=== PATIENT | male | born 1995 | race Caucasian/White ===

== ENCOUNTER 2022-08-21 06:59 | Emergency (ER) | payer BC, SELFPAY ==
[2022-08-21 07:06] VITALS: BP 124/86; PULSE 68; RESP 16; TEMP 36.8; O2SAT 100; BMI 19.9
--- NOTE | 2022-08-21 07:19 | ED.NAVMDI1 ---
HPI - Nausea/Vomiting/Diarrhea General Chief complaint: Nausea/Vomiting/Diarrhea Stated complaint: vomiting blood Time Seen by Provider: 08/21/22 07:19 Mode of arrival: walk-in History of Present Illness HPI Narrative: She presents to emergency department complaining of nausea and vomiting. He states last night he felt sick to his stomach he vomited and after he vomited really hard noted some bright red blood. There were no clots noted. Denies coffee-ground emesis. He still has nausea he states he has taken Tums because he felt like he was having acid issues which she has inteermittently. He denies any fever, chills, or cough. He denies any chest pain, shortness of breath. He denies any diarrhea or melena, hematochezia. Denies any dizziness, palpitations, lightheadedness. Related Data Previous Rx's Medication Instructions Recorded ondansetron HCl 4 mg tablet 4 mg PO DAILY PRN nausea and 08/21/22 vomiting 4 days #10 tabs pantoprazole 20 mg tablet,delayed 20 mg PO DAILY 4 weeks #28 tabs 08/21/22 release (Protonix) Allergies Allergy/AdvReac Type Severity Reaction Status Date / Time No Known Drug Allergies Allergy Verified 08/21/22 07:06 Review of Systems ROS Status of ROS 10 or more systems reviewed and unremarkable except as noted in history and below Exam Narrative Exam Narrative: Nurses notes and vital signs reviewed and patient is not hypoxic. General: Nontoxic, Well-appearing and in no apparent distress. Skin: Warm, dry, no pallor noted. No Rash Head: Normocephalic, atraumatic. Neck: Supple, non-tender. Eye: Pupils are equal, round and EOMI. No scleral icterus. Ears, Nose, Mouth, and Throat: TM clear, no posterior oropharynx erythema or nasal mucosal hypertrophy, uvula is mid-line Oral mucosa is moist Cardiovascular: Regular Rate and Rhythm without murmur, gallop or rub. Respiratory: No accessory muscle use or respiratory distress. Lungs are clear to auscultation, no wheezing, rales or rhonchi Chest Wall: no tenderness Back: No midline thoracic or lumbar vertebral tenderness. No CVA tenderness Musculoskeletal: normal ROM, no calf or popliteal tenderness, no lower extremity edema/swelling GI: Abdomen is soft, non-distended. Normal bowel sounds. No masses appreciated. No tenderness to palpation. No rebound, guarding, or rigidity noted. Neurological: A&O x4. No cranial nerve dysfunction observed. No truncal ataxia. Moves all extremities. Sensation intact. Psychiatric: Cooperative and interactive. Normal mood and affect. Constitutional Vital Signs - 24 hr 08/21/22 07:06 Temperature 98.2 F Pulse Rate [Monitor] 68 Respiratory Rate 16 Blood Pressure [Left Arm] 124/86 H Pulse Oximetry 100 Oxygen Delivery Method Room Air Course Vital Signs Vital signs: Vital Signs Temperature 98.2 F 08/21/22 07:06 Pulse Rate 68 08/21/22 07:06 Respiratory Rate 16 08/21/22 07:06 Blood Pressure 124/86 H 08/21/22 07:06 Pulse Oximetry 100 08/21/22 07:06 Oxygen Delivery Method Room Air 08/21/22 07:06 Temperature 98.2 F 08/21/22 07:06 Pulse Rate 68 08/21/22 07:06 Respiratory Rate 16 08/21/22 07:06 Blood Pressure 124/86 H 08/21/22 07:06 Pulse Oximetry 100 08/21/22 07:06 Oxygen Delivery Method Room Air 08/21/22 07:06 MDM - Nausea/Vomiting/Diarrhea MDM Narrative Medical decision making narrative: Patient had an IV established and given Zofran, IV fluids, Protonix, and a gastrointestinal cocktail. Symptoms improved. Patient and mother were advised the patient will need to follow-up with a weather stripper. Results discussed with patient and mother. Patient will be given a prescription for Zofran, and antacid medication.Last time the patient vomited and had the episode of hematemesis was at 9 PM last night 12 hours prior to blood work. At this time the patient is without objective evidence of an acute process requiring hospitalization or inpatient management. The patient has remained hemodynamically stable. No additional indication for emergent studies at this time. I answered all questions. Discussed discharge instructions including standard anticipatory guidance and what should prompt a return to the emergency department, including if they get worse are not getting better or develops any new or concerning symptoms. I've given them specific time frame in which to follow-up, and who to follow-up with. The patient demonstrates understanding. Patient is nontoxic and stable for discharge with outpatient follow-up. This note was created with the assistance of a speech recognition program. Although the intention is to generate documents that actually reflects the content of the visit, no guarantees can be provided that every mistake has been identified and corrected by editing. Differential Diagnosis Differential diagnosis: Likely food poisoning, gastroenteritis, dehydration and other (gi bleed) Lab Data Attestation: I reviewed the patient's lab results. Labs: Lab Results 08/21/22 Range/Units 07:45 WBC 9.7 (4.0-11.0) 10^3/uL RBC 5.29 (4.70-6.10) 10^6/uL Hgb 16.3 (14.0-18.0) g/dL Hct 46.5 (42.0-54.0) % MCV 87.9 (80.0-94.0) fL MCH 30.8 (25.9-34.0) pg MCHC 35.1 (29.9-35.2) g/dL RDW 11.9 (11.0-15.0) % Plt Count 215 (150-450) 10^3/uL MPV 10.2 (9.5-13.5) fL Neut % (Auto) 57.5 (43.0-75.0) % Lymph % (Auto) 25.5 (20.5-60.0) % Childress % (Auto) 11.6 (1.7-12.0) % Eos % (Auto) 4.4 (0.9-7.0) % Baso % (Auto) 0.8 (0.2-2.0) % Neut # (Auto) 5.6 (1.4-6.5) 10^3/uL Lymph # (Auto) 2.5 (1.2-3.8) 10^3/uL Childress # (Auto) 1.1 H (0.3-0.8) 10^3/uL Eos # (Auto) 0.4 (0.0-0.7) 10^3/uL Baso # (Auto) 0.1 (0.0-0.1) 10^3/uL Abs Immat Gran (auto) 0.02 (0.00-0.03) 10^3/uL Imm/Tot Granulo (auto) 0.2 (0.0-0.5) % Sodium 140 (136-145) mmol/L Potassium 3.9 (3.5-5.1) mmol/L Chloride 102 (98-107) mmol/L Carbon Dioxide 29.0 (21.0-32.0) mmol/L Anion Gap 12.9 BUN 11.0 (7.0-18.0) mg/dL Creatinine 0.85 (0.70-1.30) mg/dL Est GFR ( Amer) >60 (>=60) Est GFR (Non-Af Amer) >60 (>=60) BUN/Creatinine Ratio 12.9 Glucose 100 (74-106) mg/dL Lactate 1.0 (0.4-2.0) mmol/L Calcium 9.3 (8.5-10.1) mg/dL Total Bilirubin 1.0 (0.2-1.0) mg/dL AST 17 (15-37) U/L ALT 19 (16-63) U/L Alkaline Phosphatase 101 (46-116) U/L Total Protein 7.4 (6.4-8.2) g/dL Albumin 4.0 (3.4-5.0) g/dL Globulin 3.4 g/dL Albumin/Globulin Ratio 1.2 Lipase 58.0 L (73.0-393.0) U/L ECG Data Attestation: I personally reviewed and interpreted this ECG as follows: (EKG interpretation: Emergency Department physician interpretation. Normal sinus rhythm [id number]. Normal axis, rbbb, normal intervals and no ST segment elevation or depression.) Discharge Plan Discharge Chief Complaint: Nausea/Vomiting/Diarrhea Clinical Impression: Hematemesis, Nausea & vomiting Patient Disposition: Home, Self-Care Time of Disposition Decision: 09:09 Condition: Good Mode of Transportation: Private Vehicle Prescriptions / Home Meds: New pantoprazole [Protonix] 20 mg tablet,delayed release (DR/EC) 20 mg PO DAILY 28 Days Qty: 28 0RF ondansetron HCl 4 mg tablet 4 mg PO DAILY PRN (Reason: nausea and vomiting) 4 Days Qty: 10 0RF Instructions: Acute Nausea and Vomiting (ED), Hematemesis (ED) Stand Alone Forms: Portal Instructions Referrals: Physician,Non-Staff, MD [Primary Care Provider] - 1 week DOMINIQUE SEGOVIA MD [Physician] - As soon as possible
[2022-08-21 07:22] VITALS: PULSE 70
--- NOTE | 2022-08-21 07:38 | XR_ITS ---
The [address] [address] Patient Name: JUSTYNA LÓPEZ MRN: [id number] date: 1995 Sex: M Assigned Patient Location: ER Current Patient Location: ER Accession/Order Number: [id number] Exam Date: 08/21/2022 08:04 Report Date: 08/21/2022 08:30 At the request of: TONO ESCAMILLA Procedure: XR acute abdomen series EXAMINATION: XR acute abdomen series HISTORY: ABD PAIN COMPARISON: No relevant comparison available. FINDINGS: LUNGS: No infiltrate, pneumothorax, or pleural effusion. MEDIASTINUM: No abnormal widening. BOWEL GAS PATTERN: Non-obstructed. FREE AIR: None. CALCIFICATIONS: None significant. BONES: No fracture or visible bone lesion. OTHER: Negative. IMPRESSION: 1. No acute cardiopulmonary process. 2. Normal bowel gas pattern. No suspicious abdominal findings. Electronically authenticated by: STIVEN BENAVIDEZ Date: 08/21/2022 08:30
[2022-08-21] MEDS: 0.9 % SODIUM CHLORIDE 1,000 ML 999 ML IV (07:53)
[2022-08-21] MEDS: ONDANSETRON PF 4 MG/2 ML VIAL IV (07:54)
[2022-08-21] MEDS: PANTOPRAZOLE SODIUM 40 MG VIAL IV (07:54)
[2022-08-21 08:13] LABS: Basophils Absolute Auto 0.1 10^3/uL (0.0-0.1); Basophils Percent Auto 0.8 % (0.2-2.0); Eosinophils Absolute Auto 0.4 10^3/uL (0.0-0.7); Eosinophils Percent Auto 4.4 % (0.9-7.0); Hematocrit 46.5 % (42.0-54.0); Hemoglobin 16.3 g/dL (14.0-18.0); Immature Granulocytes Abs Auto 0.02 10^3/uL (0.00-0.03); Immature Granulocytes Pct Auto 0.2 % (0.0-0.5); Lymphocytes Absolute Auto 2.5 10^3/uL (1.2-3.8); Lymphocytes Percent Auto 25.5 % (20.5-60.0); Mean Corpuscular HGB Conc 35.1 g/dL (29.9-35.2); Mean Corpuscular Hemoglobin 30.8 pg (25.9-34.0); Mean Corpuscular Volume 87.9 fL (80.0-94.0); Mean Platelet Volume 10.2 fL (9.5-13.5); Monocytes Absolute Auto 1.1 10^3/uL (0.3-0.8); Monocytes Percent Auto 11.6 % (1.7-12.0); Neutrophils Absolute Auto 5.6 10^3/uL (1.4-6.5); Neutrophils Percent Auto 57.5 % (43.0-75.0); Platelet Count 215 10^3/uL (150-450); Red Blood Count 5.29 10^6/uL (4.70-6.10); Red Cell Distribution Width 11.9 % (11.0-15.0); White Blood Count 9.7 10^3/uL (4.0-11.0)
[2022-08-21 08:32] LABS: Alanine Aminotransferase 19 U/L (16-63); Albumin Globulin Ratio 1.2; Alkaline Phosphatase 101 U/L (46-116); Anion Gap 12.9; Aspartate Amino Transferase 17 U/L (15-37); BUN Creatinine Ratio 12.9; Calcium 9.3 mg/dL (8.5-10.1); Chloride 102 mmol/L (98-107); Estimated GFR (African America >60 (>=60); Estimated GFR (Non-African Ame >60 (>=60); Globulin 3.4 g/dL; Glucose 100 mg/dL (74-106); Potassium 3.9 mmol/L (3.5-5.1); Sodium 140 mmol/L (136-145); Total Protein 7.4 g/dL (6.4-8.2)
[2022-08-21] MEDS: lidocaine HCL 15 ML, MAG HYDROX/ALUMINUM HYD/SIMETH 30 ML, HYOSCYAMINE SULFATE 0.25 MG PO (09:42)
--- NOTE | 2022-08-21 10:24 | ECG_ITS ---
[facility] Test Date: 2022-08-21 Pat Name: JUSTYNA LÓPEZ Department: Room: - Gender: Male Highway Technician: : 1995 Requested By: [id number] Order Number: [id number] Reading MD: ARACELY LANDERS Measurements Intervals [place] Rate: 67 P: 69 SC: 146 QRS: 88 QRSD: 102 T: 80 QT: 388 QTc: 403 Interpretive Statements 1100 Sinus rhythm 2440 Incomplete right bundle branch block [address] depression 9150 abnormal ECG No previous ECG available for comparison Electronically Signed On 08-22-2022 5:39:56 EDT by ARACELY LANDERS
== END 2022-08-21 09:52 | disposition home or self-care (01) ==
PROVIDERS: Emergency Provider Emergency Medicine
DX: K92.0 Hematemesis (principal)
CPT/HCPCS: 36415; 74022; 80053; 83605; 83690; 85025; 93005; 96374; 96375; 99285